=== PATIENT | female | born 1980 | race Caucasian/White ===

== ENCOUNTER → 2017-06-04 09:09 | Outpatient (CLI) | payer MEDICAID ==
--- NOTE | 2017-06-09 16:42 | EC ---
PATIENT:SUMEET BOYD DATE OF SERVICE: 06/04/17 SEX: F MEDICAL RECORD: [id number] DATE OF : [birth year] [facility] AGE [facility] PATIENT: 37 ADMISSION DATE: 06/04/17 REFERRING PHYSICIAN: INTERPRETING PHYSICIAN: NIYA SHEFFIELD MD ECHOCARDIOGRAM REPORT ECHO CHARGES 4 ECHO COMPLETE CLINICAL DIAGNOSIS: HTN/CHEST PAIN/PALPITATIONS/DYSPNEA WITH EXERTION ECHOCARDIOGRAPHIC MEASUREMENTS (adult normal given) AC root (d.<3.7cm) 3.3 cm LV Septum d (<1.2 cm> 1.7 cm Valve Excursion 2.1 cm LV Septum (systole) 1.8 cm Left Atria (s.<4.0cm> 4.2 cm LVPW d(<1.2cm) 1.3 cm RV (d.<2.3cm) 3.4 cm LVPW (sytole) 1.8 cm LV diastole(<5.6CM) 4.0 cm MV E-F(>70mm/sec) cm LV systole 2.3 cm LVOT Diameter 2.0 cm MV exc.(>10mm) 1.3 cm Est.ejection fraction (50-75%) % Pericardial Effusion N DOPPLER: LVIT cm/sec A 83.0 cm/sec E 104 cm/sec LA cm/sec RVSP 26 mmHg LVOT 107 cm/sec AOP1/2T m/s Asc. Ao 159 cm/sec RVOT 88 cm/sec RA cm/sec PA 115 cm/sec AV Gradient Peak 10.17mmHg AV Mean 5.10 mmHg AV Area 2.2 cm MV Gradient Peak 5.52 mmHg MV Mean 2.04 mmHg MV Area cm COMMENTS: Jewel Stripper: Felicity GUTIERREZ [employer] Laboratory Assistant: 4 Dr. Enriquez TAPE# PACS DATE OF SERVICE: 06/04/2017 Echocardiogram FINDINGS: 1. Left ventricular chamber size is within normal limits. Left ventricular systolic function is normal. Overall ejection fraction estimated at 65%. 2. The left atrium is mildly dilated at 4.2 cm. Right atrium and right ventricular chamber sizes are upper limits of normal. ECHOCARDIOGRAM REPORT [id number] SUMEET BOYD 3. Valvular structures have normal structure and motion. 4. Doppler interrogation only reveals mild tricuspid regurgitation. No other valvular insufficiency or stenosis. Pulmonary systolic pressure is normal estimated at 26 mmHg. 5. No evidence of pericardial effusion or left ventricular thrombus. TRANSINT:[id number] Voice Confirmation ID: [id number] DOCUMENT ID: [id number] NIYA SHEFFIELD MD at 1642 CC: [id number] DICTATION DATE: 06/09/17 1025 RADIOACTIVITY TECHNICIAN: 06/09/17 1143 DEP CLI 06/04/17 [id number] [place] [address]
== END | disposition home or self-care (01) ==
LOC: D.ECHO 05-28 10:35
DX: R07.9 Chest pain, unspecified (principal); R00.2 Palpitations; I10 Essential (primary) hypertension

== ENCOUNTER → 2017-06-10 19:30 | Outpatient (CLI) | payer MEDICAID | END | disposition home or self-care (01) | LOC: D.SLEEP 19:30 | DX: G47.10 Hypersomnia, unspecified (principal); R40.0 Somnolence ==